=== PATIENT | male | born 1995 | race Caucasian/White ===

== ENCOUNTER 2018-03-05 18:49 | Emergency (ER) | payer MEDICAID, OTHER ==
[~2018-03-05 18:49] MED LIST: NO HOME MEDS
== END 2018-03-05 19:15 | disposition left against medical advice (07) ==
LOC: ER 18:50
DX: Z00.8 Encounter for other general examination (principal); Z53.21 Procedure and treatment not carried out due to patient leaving prior to being seen by health care provider

== ENCOUNTER 2018-03-05 19:57 | Emergency (ER) | payer MEDICAID, OTHER ==
[~2018-03-05] VITALS: Ht 180.3 cm; Wt 63.2 kg
[2018-03-05 20:02] VITALS: BP 127/70
== END 2018-03-05 21:01 | disposition home or self-care (01) ==
LOC: ER 19:58
DX: Z02.89 Encounter for other administrative examinations (principal); F12.90 Cannabis use, unspecified, uncomplicated; Z72.0 Tobacco use
CPT/HCPCS: 99281

== ENCOUNTER 2018-11-26 11:16 | Emergency (ER) | payer MEDICAID ==
[~2018-11-26] VITALS: Ht 180.3 cm; Wt 79.5 kg
[2018-11-26 11:17] VITALS: BP 132/67
== END 2018-11-26 11:40 | disposition home or self-care (01) ==
LOC: ER 11:17
DX: F15.10 Other stimulant abuse, uncomplicated (principal); F12.90 Cannabis use, unspecified, uncomplicated; K08.89 Other specified disorders of teeth and supporting structures
CPT/HCPCS: 99281

== ENCOUNTER 2019-03-03 11:06 | Emergency (ER) | payer MEDICAID ==
[~2019-03-03] VITALS: Ht 180.3 cm; Wt 81.8 kg
[2019-03-03 11:07] VITALS: BP 119/74
== END 2019-03-03 11:52 | disposition home or self-care (01) ==
LOC: ER 11:06
DX: Z02.89 Encounter for other administrative examinations (principal); F12.90 Cannabis use, unspecified, uncomplicated; F15.90 Other stimulant use, unspecified, uncomplicated
CPT/HCPCS: 99281

== ENCOUNTER 2020-03-01 08:53 | Emergency (ER) | payer MEDICAID ==
[~2020-03-01] VITALS: Ht 180.3 cm; Wt 81.8 kg
[2020-03-01] MEDS ORDERED: ibuprofen tablet 400 MG TABLET PO ONE (09:50)
[2020-03-01] MEDS ORDERED: cephalexin 250mg capsule PO ONE (09:50)
[2020-03-01] MEDS ORDERED: sulfamethoxazole/trimethoprim DS (800/160mg) tablet PO ONE (09:50)
[2020-03-01] MEDS ORDERED: LACT1CAP60 PO (09:56)
[2020-03-01] MEDS ORDERED: SULF1TAB49 PO (09:56)
[2020-03-01] MEDS ORDERED: CEPH500C5 PO (09:56)
[2020-03-01 10:11] VITALS: BP 140/85
== END 2020-03-01 10:15 | disposition home or self-care (01) ==
LOC: ER 08:54
DX: L02.511 Cutaneous abscess of right hand (principal); F12.90 Cannabis use, unspecified, uncomplicated; F15.90 Other stimulant use, unspecified, uncomplicated; F17.200 Nicotine dependence, unspecified, uncomplicated; Z60.2 Problems related to living alone; Z79.899 Other long term (current) drug therapy
CPT/HCPCS: 99284

== ENCOUNTER 2020-04-03 12:08 | Emergency (ER) | payer MEDICAID ==
[~2020-04-03] VITALS: Ht 180.3 cm; Wt 80.0 kg
[~2020-04-03 12:08] MED LIST changes: +CEPH500C5 PO; +LACT1CAP60 PO
[2020-04-03 12:11] VITALS: BP 137/81
[2020-04-03] MEDS ORDERED: ketorolac trometh inj. 60 MG/2 ML VIAL IM ONE (12:45)
[2020-04-03] MEDS ORDERED: NAPR-56 PO (12:45)
== END 2020-04-03 12:57 | disposition home or self-care (01) ==
LOC: ER 12:09
DX: M25.512 Pain in left shoulder (principal); F12.90 Cannabis use, unspecified, uncomplicated; F15.90 Other stimulant use, unspecified, uncomplicated; Z60.2 Problems related to living alone; Z79.899 Other long term (current) drug therapy
CPT/HCPCS: 73030; 96372; 99283; J1885

== ENCOUNTER 2020-04-05 13:35 | Emergency (ER) | payer MEDICAID ==
[~2020-04-05] VITALS: Ht 180.3 cm; Wt 78.6 kg
[~2020-04-05 13:35] MED LIST changes: +NAPR-56 PO
[2020-04-05 14:03] VITALS: BP 101/44
== END 2020-04-05 14:31 | disposition left against medical advice (07) ==
LOC: ER 13:36
DX: M25.512 Pain in left shoulder (principal); Z53.21 Procedure and treatment not carried out due to patient leaving prior to being seen by health care provider

== ENCOUNTER 2020-04-19 15:37 | Emergency (ER) | payer MEDICAID ==
[~2020-04-19] VITALS: Ht 180.3 cm; Wt 77.0 kg
[2020-04-19 15:38] VITALS: BP 113/66
[2020-04-19] MEDS ORDERED: CEPH-572 PO (16:24)
[2020-04-19] MEDS ORDERED: SULF1TAB49 PO (16:24)
== END 2020-04-19 16:46 | disposition home or self-care (01) ==
LOC: ER 15:38
DX: L73.9 Follicular disorder, unspecified (principal); R50.9 Fever, unspecified; F12.90 Cannabis use, unspecified, uncomplicated; F15.90 Other stimulant use, unspecified, uncomplicated; Z79.2 Long term (current) use of antibiotics; Z79.899 Other long term (current) drug therapy
CPT/HCPCS: 99283